=== PATIENT | female | born 1955 | race Caucasian/White ===

== ENCOUNTER 2016-12-04 05:52 | Emergency (ER) | payer BC ==
--- NOTE | ~2016-12-04 | ER ---
PATIENT'S NAME: FAISAL JOY [facility] AGE: 61 Y [address] ROOM: [place] [address] LOCATION: [facility] ADMIT DATE: 12/04/2016 ER/Outpatient Report DISCHARGE DATE: 12/04/2016 FAMILY PHYSICIAN: Darnell Travis MD ATTENDING PHYSICIAN: Velasquez Ruth CHIEF COMPLAINT: Chest pain. HISTORY OF PRESENT ILLNESS: Ms. Joy presents with a chief complaint of chest pain. The pain started at 5:00 a.m. She has a history of achalasia and often developed esophageal spasms, however, this time it radiates to her neck. She is unclear if this is exactly the same. It also was felt in her back somewhat which is not uncommon when she has her other symptoms. She has had some nausea and vomiting this morning and felt a little sweaty. The character of the pain is sharp and spasm like in the center of the chest. She has not taken anything for this at this time. PAST MEDICAL HISTORY: Documented on the record and reviewed by me. SOCIAL HISTORY: Documented on the record and reviewed by me. MEDICATIONS: Documented on the record and reviewed by me. ALLERGIES: DOCUMENTED ON THE RECORD AND REVIEWED BY ME. REVIEW OF SYSTEMS: All systems were reviewed and negative except as noted in the HPI. PHYSICAL EXAMINATION: VITAL SIGNS: Blood pressure 181/93, pulse 81, respiratory rate is 22, and SpO2 is 97% on room air. Pain is rated at 10/10. GENERAL: An age appropriate female, sitting upright on the exam table, in no apparent pain or distress. NEUROLOGIC: Awake and alert. GCS is 15. No focal deficits. No asymmetry. No gait abnormalities, does use a cane. HEENT: Normocephalic and atraumatic. Eyes: PERRL. Oropharynx is clear. NECK: Supple. Trachea is midline. CHEST: Heart is regular rate and rhythm with no murmurs. LUNGS: Clear to auscultation bilateral with no rhonchi, wheezes, or rales. PATIENT'S NAME: FAISAL JOY [facility] AGE: 61 Y [address] ROOM: [place] [address] LOCATION: [facility] ADMIT DATE: 12/04/2016 ER/Outpatient Report DISCHARGE DATE: 12/04/2016 FAMILY PHYSICIAN: Darnell Travis MD ATTENDING PHYSICIAN: Velasquez Ruth ABDOMEN: Soft, nontender, and nondistended. No rebound or guarding. BACK: Normal to inspection and palpation. EXTREMITIES: Warm and well perfused. No obvious edema. SKIN: Appears to be clean, dry, and intact. LABORATORY DATA AND X-RAYS: Chest x-ray with a slightly widened mediastinum, unchanged compared to prior chest x-ray. No consolidations or pneumothoraces. No other acute findings. EKG sinus rhythm, with some baseline artifacts. No signs of acute ischemia. Repeat EKG is unchanged. No prior EKGs today. Initial and repeat troponin are below detectable threshold. CK-MB is down trending. CMS with no appreciable abnormalities. CBC with a white count of 17.6, otherwise unremarkable. INR is less than 1. IMPRESSION: 1. Chest pain, NOS. 2. Leukocytosis, likely secondary to steroid use. EMERGENCY DEPARTMENT COURSE: The patient was seen and evaluated as above. She received serial EKGs and troponins for cardiac rule out. Not consistent with aortic dissection or Boerhaave syndrome. She was given nitroglycerin which alleviated all symptoms. Blood pressure improved. Her leukocytosis is likely secondary to her steroid use as there are no other signs of infection at this time. Recommend close followup with PCP within the week. Return immediately if worse, the patient agreed. All questions were answered. The patient was discharged in good condition. MD RUPA GERARD/javierl /[id number] d: 12/04/16 1205 t: 12/06/16 0656, OUTPATIENT REPORT
[2016-12-04 06:07] LABS: BASOPHIL % 0.2 %; EOSINOPHIL % 0.1 %; HEMATOCRIT 42.4 % (33.0-46.0); HEMOGLOBIN 14.3 g/dL (10.0-15.0); IMMATURE GRANULOCYTE # 0.6 K/uL (0.0-0.3); IMMATURE GRANULOCYTE % 3.5 %; LYMPHOCYTE % 11.2 %; MCH 29.9 pg (27.0-34.0); MCHC 33.7 gm/dL (32.0-36.5); MCV 88.7 fl (83.0-98.0); MONOCYTE % 5.7 %; MPV 8.9 fl (9.4-12.4); NEUTROPHIL % 79.3 %; NRBC % 0 /100WBC (0-0.00); PLATELET COUNT 315 K/uL (150-450); RBC 4.78 M/uL (3.50-5.50)
[2016-12-04 06:14] LABS: WBC 17.6 K/uL (4.0-11.0)
[2016-12-04 06:22] LABS: INR - (THERAPEUTIC) 0.88 (0.92-1.07); PROTIME 9.2 SECONDS (9.8-11.4); PTT 22 SECONDS (25-32)
[2016-12-04 06:30] LABS: ALBUMIN 3.6 gm/dL (3.5-5.0); ALK PHOS 113 IU/L (33-138); ALT 46 IU/L (12-78); BLOOD UREA NITROGEN 21 mg/dL (6-24); CALCIUM 10.3 mg/dL (8.5-10.5); CHLORIDE 103 mMol/L (96-110); CO2 25 mMol/L (22-32); CPK 94 IU/L (21-215); SODIUM 139 mMol/L (135-145); TOTAL BILIRUBIN 0.3 mg/dL (0.0-1.5); TOTAL PROTEIN 7.2 g/dL (6.0-8.4)
[2016-12-04 06:31] LABS: ANION GAP 15.3 (10.0-19.0); AST 22 IU/L (10-40); MAGNESIUM 2.6 mg/dL (1.8-2.6); POTASSIUM 4.3 mMol/L (3.7-5.1)
[2016-12-04 08:22] LABS: CPK 76 IU/L (21-215)
== END 2016-12-04 08:42 | disposition disaster alternative care site (69) ==
LOC: GMED 05:52
PROVIDERS: Emergency Medicine
DX: R07.9 Chest pain, unspecified (principal); D72.829 Elevated white blood cell count, unspecified; J45.909 Unspecified asthma, uncomplicated; Z88.5 Allergy status to narcotic agent; Z88.8 Allergy status to other drugs, medicaments and biological substances; Z79.84 Long term (current) use of oral hypoglycemic drugs; Z79.52 Long term (current) use of systemic steroids; Z79.899 Other long term (current) drug therapy; Z90.89 Acquired absence of other organs; Z98.890 Other specified postprocedural states

== ENCOUNTER 2016-12-07 20:42 | Emergency (ER) | payer BC ==
--- NOTE | ~2016-12-07 | ER ---
PATIENT'S NAME: FAISAL MICHELLE [facility] AGE: 61 Y [address] ROOM: [place] [address] LOCATION: [facility] ADMIT DATE: 12/07/2016 ER/Outpatient Report DISCHARGE DATE: 12/07/2016 FAMILY PHYSICIAN: Darnell Travis MD ATTENDING PHYSICIAN: Alicia Alvarado HISTORY OF PRESENT ILLNESS: A 61-year-old female, who presents today with chief complaint of shortness of breath. The patient reports that it started approximately 3 hours ago were it got worse. She used her nebulizer about 50 minutes prior to coming in and then says she was not feeling better, so that she decided to come in. When I asked how long this has been going on, she says since January 2016, which is also almost 10 months ago now. She reports that she had a bacterial infection of her lungs back in January 2016, and she has been coughing intermittently since then. She reports that she has had sort of episodes of this. Since then, she said she is always short of breath but it has been worse since 3 hours ago. She said this is similar to previous flares of her previous shortness of breath episodes. She says that she has never been hospitalized really for this, but she gets a course of steroids and then was discharged. She recently saw Dr. Travis, her primary care doctor, approximately 10 days ago and he started her on a prednisone taper 60 for 5 days and then 20 for 3 days and then 10 mg. She is currently taking 20 mg a day and she took it today as well. She has intermittent cough. She denies any fever or chills. She has no chest pain. She has no muscle aches. No chemical exposure. No pain on inspiration or expiration. No other complaints. PAST MEDICAL HISTORY: Includes esophageal spasm, achalasia, anxiety, GERD, and asthma. PAST SURGICAL HISTORY: Includes tonsillectomy and hip surgery. SOCIAL HISTORY: She has never smoked. She does not use drugs and she does not do alcohol. MEDICATIONS: Please see med list. ALLERGIES: LEVAQUIN. REVIEW OF SYSTEMS: Reviewed by me and negative with the exception of those discussed in the HPI. PHYSICAL EXAMINATION: PATIENT'S NAME: FAISAL MICHELLE [facility] AGE: 61 Y [address] ROOM: [place], [place] [address] LOCATION: ED ADMIT DATE: 12/07/2016 ER/Outpatient Report DISCHARGE DATE: 12/07/2016 FAMILY PHYSICIAN: Darnell Travis MD ATTENDING PHYSICIAN: Alicia Alvarado VITAL SIGNS: Her weight is 84.7 kilos, blood pressure 143/74, heart rate 88, respiratory rate 26, temperature is 96.9, SpO2 at this time is 93% on room air. GENERAL: The patient appears tachypneic, but she is able to speak to me in full sentences. She also appears pretty anxious as well though she is able to speak in full sentences. She answers questions appropriately. She is A and O x4. Her GCS is 15. NECK: Her throat is clear. HEART: Rate is regular rate and rhythm at this time. Heart rate is about 88 beats per minute. Mildly hypertensive at 143/74. Good cap refill. LUNGS: Lung sound is clear. She is tachypneic to the mid 20s at this time, but she has no wheezing, rales, or rhonchi. Good air movement bilaterally. She does not have any accessory muscle use at this time. ABDOMEN: Soft, nontender, nondistended. EXTREMITIES: She does not have any pedal edema. She has no calf tenderness. EMERGENCY ROOM COURSE: The patient was given one DuoNeb here with mild improvement of her symptoms. I reviewed her previous ER visit just a few days ago where she had come in with chest pain. They thought was mostly due to her esophageal spasm and it had resolved with some nitroglycerin. Her sats are actually 97% at rest though she still appears tachypneic and also mildly anxious. Her son was worried that she might be having anxiety attack. Her lung sounds are clear. She has no worsening symptoms. So, she was given 1 mg of Ativan after which she felt better. We then had her walk around the ER. She says that she feels slightly more winded when she sort of walks around, but it is much better than when she came in. So, I will give her script for some Ativan. She understands when to take this. 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 She understands the reasons to come back to the ER sooner. IMPRESSION: Shortness of breath, anxiety. MD CALVIN RANDOLPH/fatoumata /[id number] d: 12/08/16 0113 t: 12/08/16 0407, OUTPATIENT REPORT
== END 2016-12-07 21:54 | disposition disaster alternative care site (69) ==
LOC: GMED 20:42
DX: F41.9 Anxiety disorder, unspecified (principal); R06.02 Shortness of breath; K21.9 Gastro-esophageal reflux disease without esophagitis; J45.909 Unspecified asthma, uncomplicated; Z90.89 Acquired absence of other organs; Z98.890 Other specified postprocedural states; Z88.1 Allergy status to other antibiotic agents; Z79.899 Other long term (current) drug therapy; Z79.84 Long term (current) use of oral hypoglycemic drugs; Z79.82 Long term (current) use of aspirin